=== PATIENT | female | born 1960 | race American Indian/Alaskan Native ===

== ENCOUNTER 2020-04-05 09:12 | Outpatient (CLI) | payer MEDICAID ==
[2020-04-05 10:11] LABS: Blood Urea Nitrogen 11 mg/dL (7-17)
--- NOTE | 2020-04-07 12:04 | Cat Scan Report ---
CTA ABDOMEN AND PELVIS WITHOUT AND WITH IV CONTRAST INDICATION / CLINICAL INFORMATION: LUQ ABDOMINAL PAIN,WEIGHT LOSS,ABNORMAL ABDOMINAL EXAM. TECHNIQUE: Axial CT images were obtained through the abdomen and pelvis before and after after injection of 100 mL of Omnipaque 350 IV contrast. 3 plane MIP / 3D reconstructions were produced. All CT scans at this location are performed using CT dose reduction for ALARA by means of automated exposure control. COMPARISON: None available. FINDINGS: Aorta: No significant abnormality. Renal arteries: No significant abnormality. Celiac artery: No significant abnormality. Superior Mesenteric Artery: No significant abnormality. Inferior mesenteric artery: No significant abnormality. Right Iliac Arteries: No significant abnormality.. Left Iliac Arteries: No significant abnormality.. Additional Findings: Small left renal cyst. Liver, gallbladder, pancreas, spleen, adrenals, right kid adore, bladder and bowel are unremarkable. Skeletal Structures: No significant abnormality. Moderate right and mild left hip osteoarthritis. Oth er scattered degenerative changes of the thoracolumbar spine noted. IMPRESSION: 1. No acute process of the abdomen or pelvis. 2. Chronic, incidental findings, detailed above. Signer Name: Jomar Colmenares MD Signed: 04/05/2020 11:49 AM Workstation Name: [id number]
== END 2020-04-05 09:13 | disposition home or self-care (01) ==
LOC: CT 09:12
DX: N28.1 Cyst of kidney, acquired (principal); R63.4 Abnormal weight loss; M47.815 Spondylosis without myelopathy or radiculopathy, thoracolumbar region; M16.12 Unilateral primary osteoarthritis, left hip
CPT/HCPCS: 36415; 74174; 82565; 84520; Q9967